=== PATIENT | male | born 1980 | race Two or more races ===

== ENCOUNTER 2023-03-30 08:15 | Inpatient (IN) | payer MEDICAID ==
[2023-03-30] VITALS (9 sets, daily range): BP systolic 105–127; BP diastolic 72–80
[~2023-03-30] VITALS: Ht 170.2 cm; Wt 97.0 kg
[~2023-03-30 08:15] MED LIST: BICT1TAB4 PO; DAPS100T PO
[2023-03-30] MEDS ORDERED: ceFAZolin 1GM/50ML 100 ML IV ONE (08:23)
[2023-03-30] MEDS ORDERED: TRANEXAMIC ACID 20 ML ONE (08:32)
[2023-03-30] MEDS: ROPIVACAINE 0.5% (5MG/ML) 20ML AMPULE IJ ONE ×2 (08:32→11:02)
[2023-03-30] MEDS ORDERED: VANCOMYCIN HCL 1000 MG VL ONE (08:34)
[2023-03-30] MEDS ORDERED: BUPIVACAINE/DEXTROSE MPF 0.75% 2 ML AMP IT ONE (08:36)
[2023-03-30] MEDS ORDERED: MIDAZOLAM HCL 2MG/2ML 2ml VIAL (1mg/ml) ONE ×2 (08:36→09:29)
[2023-03-30] MEDS ORDERED: EPINEPHrine HCL 1 MG/1 ML AMP ONE (08:36)
[2023-03-30] MEDS ORDERED: ONDANSETRON HCL 4 MG/2 ML VIAL ONE (08:36)
[2023-03-30] MEDS ORDERED: PROPOFOL 10 MG/ML 20 ML IV ONE ×3 (08:36→10:43)
[2023-03-30] MEDS ORDERED: KETOROLAC TROMETH 30 MG/ML 1ML VIAL ONE (08:36)
[2023-03-30] MEDS ORDERED: fentaNYL CITRATE 100 MCG/2 ML VL ONE (08:36)
[2023-03-30] MEDS ORDERED: SODIUM CHLORIDE LOCK 10 ML ONE (08:36)
[2023-03-30] MEDS ORDERED: TETRACAINE 1% INJ 2 ML VIAL IJ ONE (08:47)
[2023-03-30] MEDS ORDERED: SUCCINYLCHOLINE CHLORIDE 20 MG/ML 10ML VIAL IV ONE (08:47)
[2023-03-30] MEDS ORDERED: MORPHINE SULF PF 5 MG/10 ML VIAL ONE (08:48)
[2023-03-30] MEDS ORDERED: diphenhdrAMINE HCL 50 MG/1 ML VL IV PRN (09:45)
[2023-03-30] MEDS ORDERED: HYDROmorphone HCL 2 MG/ML VL/or syr IV PRN ×2 (09:45)
[2023-03-30] MEDS ORDERED: METOCLOPRAMIDE HCL 5MG/ml INJ 2ml VIAL IV PRN (09:45)
[2023-03-30] MEDS ORDERED: NALOXONE HCL 0.4 MG/ML VIAL IV PRN (09:45)
[2023-03-30] MEDS ORDERED: MORPHINE SULFATE INJ 2 MG/ml SYRG IV PRN (09:45)
[2023-03-30] MEDS: SODIUM CHLORIDE 0.9% 1,000 ML IV SCH ×2 (11:30→19:05)
[2023-03-30] MEDS: ACETAMINOPHEN 325 MG TAB PO SCH (12:00)
[2023-03-30] MEDS ORDERED: DexAMETHasone SOD PHOS 10MG/1ML VIAL INJ IM ONE (13:00)
[2023-03-30] MEDS ORDERED: MEPERIDINE HCL (25 MG/ML) 1ML VIAL IM ONE (13:00)
[2023-03-30] MEDS ORDERED: DexAMETHasone SOD PHOS 4 MG/1ML SDV INJ ONE (13:13)
[2023-03-30] MEDS ORDERED: ONDANSETRON HCL 4 MG/2 ML VIAL IV PRN (13:45)
[2023-03-30] MEDS: ceFAZolin 2 GM/D5W100ml 100 ML IV SCH ×2 (14:00→21:49)
[2023-03-30] MEDS: KETOROLAC TROMETH 30 MG/ML 1ML VIAL IV SCH (16:23)
[2023-03-30] MEDS: ONDANSETRON HCL 4 MG/2 ML VIAL IV PRN (16:23)
[2023-03-30] MEDS: oxyCODONE HCL 5MG TAB PO PRN (20:29)
[2023-03-30] MEDS: PREGABALIN 25 MG CAP PO SCH (21:49)
[2023-03-31] VITALS (20 sets, daily range): BP systolic 103–135; BP diastolic 54–81
[2023-03-31] MEDS: SODIUM CHLORIDE 0.9% 1,000 ML IV SCH ×3 (00:28→19:30)
[2023-03-31] MEDS: oxyCODONE HCL 5MG TAB PO PRN ×4 (00:35→20:50)
[2023-03-31] MEDS: ACETAMINOPHEN 325 MG TAB PO SCH ×5 (05:56→23:59)
[2023-03-31] MEDS: KETOROLAC TROMETH 30 MG/ML 1ML VIAL IV SCH ×5 (05:56→23:59)
[2023-03-31] MEDS: BIKTARVY PO SCH (05:57)
[2023-03-31] MEDS: DAPSONE 100 MG PO SCH (05:57)
[2023-03-31 06:19] LABS: Basophils # (auto) 0 10 ^3/uL (0-0.2); Basophils % (auto) 0.1 % (0.0-2.0); Eosinophils # (auto) 0 10 ^3/uL (0-0.8); Hematocrit 35.4 % (41.0-53.0); Hemoglobin 11.9 g/dL (13.5-17.5); Lymphocytes # (auto) 1.3 10 ^3/uL (0.4-5.4); Lymphocytes % (auto) 15.3 % (10.0-50.0); Mean Corpuscular Hemoglobin 32.2 pg (28.0-32.0); Mean Corpuscular Hgb Conc. 33.8 g/dL (32.0-36.0); Mean Corpuscular Volume 95.4 fL (80.0-100.0); Monocytes % (auto) 12.6 % (0.0-12.0); Neutrophils # (auto) 5.9 10 ^3/uL (1.6-8.6); Nucleated Red Blood Cells % 0.2 %; Red Blood Cells 3.71 10^6/uL (4.5-5.90); Red Cell Distribution Width 14.3 % (11.8-14.3); White Blood Cell 8.3 10^3/uL (4.4-10.8)
[2023-03-31 06:38] LABS: BUN/Creatinine Ratio 16.5 (10.0-20.0); Calcium 8.1 mg/dL (8.5-10.1); Potassium 4.5 mmol/L (3.5-5.1)
[2023-03-31] MEDS: APIXABAN 2.5 MG TAB PO SCH ×2 (10:20→21:30)
[2023-03-31] MEDS: PREGABALIN 25 MG CAP PO SCH ×2 (10:21→21:30)
[2023-04-01] MEDS: SODIUM CHLORIDE 0.9% 1,000 ML IV SCH ×3 (02:26→18:30)
[2023-04-01 05:00] VITALS: BP 111/59
[2023-04-01] MEDS: ACETAMINOPHEN 325 MG TAB PO SCH ×4 (05:42→23:11)
[2023-04-01] MEDS: KETOROLAC TROMETH 30 MG/ML 1ML VIAL IV SCH ×4 (05:43→23:13)
[2023-04-01] MEDS: DAPSONE 100 MG PO SCH (05:43)
[2023-04-01] MEDS: BIKTARVY PO SCH (05:44)
[2023-04-01] MEDS: oxyCODONE HCL 5MG TAB PO PRN (07:54)
[2023-04-01 08:37] VITALS: BP 106/60
[2023-04-01] MEDS: APIXABAN 2.5 MG TAB PO SCH ×2 (09:16→21:03)
[2023-04-01] MEDS: PREGABALIN 25 MG CAP PO SCH ×2 (09:16→21:03)
[2023-04-01 12:51] VITALS: BP 123/64
[2023-04-01 16:00] VITALS: BP 112/62
[2023-04-01] MEDS: ONDANSETRON HCL 4 MG/2 ML VIAL IV PRN (18:13)
[2023-04-01 22:00] VITALS: BP 96/58
[2023-04-02] MEDS: SODIUM CHLORIDE 0.9% 1,000 ML IV SCH ×4 (03:17→23:25)
[2023-04-02 05:00] VITALS: BP 120/72
[2023-04-02] MEDS: ACETAMINOPHEN 325 MG TAB PO SCH ×4 (05:14→23:16)
[2023-04-02] MEDS: KETOROLAC TROMETH 30 MG/ML 1ML VIAL IV SCH ×4 (05:15→23:16)
[2023-04-02] MEDS: DAPSONE 100 MG PO SCH (05:16)
[2023-04-02] MEDS: BIKTARVY PO SCH (05:18)
[2023-04-02 08:20] VITALS: BP 121/83
[2023-04-02] MEDS: ONDANSETRON HCL 4 MG/2 ML VIAL IV PRN (08:26)
[2023-04-02] MEDS: oxyCODONE HCL 5MG TAB PO PRN ×2 (08:46→13:45)
[2023-04-02] MEDS: APIXABAN 2.5 MG TAB PO SCH ×2 (10:24→21:35)
[2023-04-02] MEDS: PREGABALIN 25 MG CAP PO SCH ×2 (10:24→21:35)
[2023-04-02 12:44] VITALS: BP 123/68
[2023-04-02 16:45] VITALS: BP 120/69
[2023-04-02] MEDS: SENNA 8.6 MG TAB PO SCH (21:34)
[2023-04-02] MEDS: DOCUSATE SOD 100 MG CAP PO SCH (21:34)
[2023-04-02 22:00] VITALS: BP 117/72
[2023-04-03 05:00] VITALS: BP 103/57
[2023-04-03] MEDS: ACETAMINOPHEN 325 MG TAB PO SCH ×2 (05:18→13:22)
[2023-04-03] MEDS: KETOROLAC TROMETH 30 MG/ML 1ML VIAL IV SCH ×2 (05:18→13:21)
[2023-04-03] MEDS: DAPSONE 100 MG PO SCH (05:19)
[2023-04-03] MEDS: BIKTARVY PO SCH (05:19)
[2023-04-03 09:00] VITALS: BP 111/65
[2023-04-03] MEDS: DOCUSATE SOD 100 MG CAP PO SCH (10:00)
[2023-04-03] MEDS: SENNA 8.6 MG TAB PO SCH (10:00)
[2023-04-03] MEDS ORDERED: POLYETHYLENE GLYCOL 17 GM PWDR PO SCH (10:00)
[2023-04-03] MEDS: APIXABAN 2.5 MG TAB PO SCH (10:14)
[2023-04-03] MEDS: PREGABALIN 25 MG CAP PO SCH (10:17)
[2023-04-03] MEDS: SODIUM CHLORIDE 0.9% 1,000 ML IV SCH (11:30)
[2023-04-03 12:36] VITALS: BP 131/85
[2023-04-03 14:49] VITALS: BP 131/85
[2023-04-03 16:57] VITALS: BP 116/70
== END 2023-04-03 17:24 | DRG 324 ==
LOC: SUR 08:15 → OVERFLOW 11:40 → UNDOADMIN 11:40 → OVERFLOW 12:17 → TELE-WESTW 16:02
PROVIDERS: ADMIT Orthopaedic Surgery; ATTEND Orthopaedic Surgery
PROC: 0SR906Z Replacement of Right Hip Joint with Oxidized Zirconium on Polyethylene Synthetic Substitute, Open Approach (ICD-10-PCS; principal; 2023-03-30 09:10)
DX: M87.851 Other osteonecrosis, right femur (principal)
CPT/HCPCS: 36415; 72170; 73501; 73502; 80048; 85025; 86850; 86900; 86901; 97110; 97116; 97163; 97530; G0378; J0171; J0330; J0690; J1100; J1885; J2250; J2405; J2704